=== PATIENT | female | born 1990 | race Caucasian/White ===

== ENCOUNTER 2016-10-04 09:26 | Inpatient (IN) | payer OTHER ==
[2016-10-04] MEDS ORDERED: LACTATED RINGERS 1,000 ML ONE ×2 (10:27→12:19)
[2016-10-04 11:44] LABS: Basophils % (Auto) 0.6 % (0.0-1.8); Eosinophils % (Auto) 7.1 % (0.0-4.3); Hematocrit 30.7 % (30.3-42.9); Hemoglobin 9.4 gm/dl (10.1-14.3); Mean Corpuscular HGB Conc 31 % (30-34); Platelet Count 246 K/mm3 (140-440); Red Blood Count 4.55 M/mm3 (3.65-5.03); Red Cell Distribution Width 18.2 % (13.2-15.2); White Blood Count 9.9 K/mm3 (4.5-11.0)
[2016-10-04 11:50] LABS: Mean Corpuscular Hemoglobin 21 pg (28-32); Mean Corpuscular Volume 68 fl (79-97)
[2016-10-04] MEDS ORDERED: SUBLIMAZE ONE (12:08)
[2016-10-04] MEDS ORDERED: POLYCILLIN/NS 2 GM/100 ML 2 GM/100 ML BAG IV ONE ×2 (12:10→12:48)
[2016-10-04 12:23] LABS: HIV-1 Antigen p24 Non React (Non React); HIVR-1/2 Ab Non React (Non React)
--- NOTE | 2016-10-04 12:25 | History and Physical Report ---
History of Present Illness Date of examination: 10/04/16 Date of admission: 10/04/16 11:44 Chief complaint: Painful contractions History of present illness: 26-year-old 002 at ?39+4 wks [place] 10/07/16 (via oral hx of sono at ?12 wks) presents in active labor, she has had no care this . Claims earlier in her , she presented to a clinic in the vicinity ([facility]) where she had an ultrasound x 2, she had a total of 2 visits then was no show afterwards due to finances. She is a recent transplant from [employer]. She has an oral history of section in [place] in 2005 followed by successful In Triage, patient was ~ 4-5 cm dilated Ultrasound obtained here shows infant at 37 weeks ([place] 10/25/16) with estimated weight of 3021 g Has an anterior placenta Past History Past Medical History: no pertinent history Past Surgical History: section (Follwed by in [place]) Social history: single, full code. denies: smoking, alcohol abuse, prescription drug abuse, IV drug use - Obstetrical History : 4 Medications and Allergies Allergies Allergy/AdvReac Type Severity Reaction Status Date / Time No Known Allergies Allergy Verified 10/04/16 10:07 Review of Systems Constitutional: no fever, no chills Cardiovascular: no chest pain, no orthopnea, no palpitations, no edema, no syncope, no lightheadedness, no shortness of breath, no dyspnea on exertion, no paroxysmal nocturnal dyspnea, no high blood pressure Respiratory: no cough with sputum, no excessive sputum, no shortness of breath, no dyspnea on exertion Gastrointestinal: abdominal pain (Painful contractions), no nausea, no vomiting Genitourinary: contractions, no vaginal bleeding, no vaginal discharge, no leakage of fluid - Vital Signs Vital signs: Vital Signs Pulse Pulse Ox 73 99 10/04/16 09:43 10/04/16 09:43 Temp Pulse Resp BP Pulse Ox 96.8 F L 65 20 108/68 98 10/04/16 10:32 10/04/16 12:12 10/04/16 10:32 10/04/16 10:32 10/04/16 12:12 - Physical Exam Cardiovascular: Regular rate, Normal S1, Normal S2 Lungs: Positive: Clear to auscultation, Normal air movement Abdomen: Positive: normal appearance, soft. Negative: distention, tenderness, guarding, rigidity Genitourinary (Female): Positive: normal external genitalia Vulva: both: normal Uterus: Positive: enlarged. Negative: tender (EFW ~ 3000) Adnexa: both: normal Extremities: Positive: normal - Obstetrical FHR: category 1 Cervical Dilatation: 7 (per RN) Results Result Diagrams: 10/04/16 11:11 Abnormal lab results 10/04/16 Range/Units 11:11 Hgb 9.4 L (10.1-14.3) gm/dl MCV 68 L (79-97) fl MCH 21 L (28-32) pg RDW 18.2 H (13.2-15.2) % Eos % (Auto) 7.1 H (0.0-4.3) % Eos # 0.7 H (0.0-0.4) K/mm3 All other labs normal. Assessment and Plan A: 26-year-old 002 at 39 wks in active labor -Cat 1 tracing Issues -Oral hx of in [place] and wants repeat -Mal[place] only (hx from relative) -Discrepant in gestational age ??IUGR (?39 wks via oral hx of sono but 37 wks today) -No care P: -We have obtained ultrasound and labs -Admit -Epidural prn -Expectant management -Anticipate normal vaginal delivery - Patient Problems (1) 39 weeks gestation of Current Visit: Yes Status: Acute (2) No care in current Current Visit: Yes Status: Acute Qualifiers: Trimester: T (3) IUGR (intrauterine growth restriction) Current Visit: Yes Status: Suspected (4) Active labor Current Visit: Yes Status: Acute (5) Hx successful (vaginal after ), currently Current Visit: Yes Status: Acute
[2016-10-04] MEDS ORDERED: ePHEDrine SULFATE IV PRN ×2 (12:48→15:15)
[2016-10-04] MEDS ORDERED: BRETHINE IVP PRN (12:48)
[2016-10-04] MEDS ORDERED: ZOFRAN IV PRN ×2 (12:48→17:53)
[2016-10-04] MEDS ORDERED: BRETHINE SUB-Q PRN (12:48)
[2016-10-04] MEDS ORDERED: XYLOCAINE 2% INFILTRATI ONE ×2 (12:48→17:39)
[2016-10-04] MEDS ORDERED: MINERAL OIL PO PRN (12:48)
[2016-10-04] MEDS ORDERED: LACTATED RINGERS 1,000 ML IV SCH (13:00)
[2016-10-04] MEDS ORDERED: PITOCin/NS 20 UNIT/1000ML DRIP 20 UNITS/1,000 ML BAG IV SCH ×2 (13:00→19:00)
[2016-10-04] MEDS ORDERED: PITOCin/NS 30 UNIT/500ML 30 UNITS/500 ML BAG IV SCH ×2 (13:00)
[2016-10-04] MEDS ORDERED: ePHEDrine SULFATE ONE (13:50)
--- NOTE | 2016-10-04 13:51 | Ultrasound Report ---
OB ULTRASOUND History: No care. Technique: Transabdominal ultrasound with Doppler interrogation. Gestation: Single Position: Cephalic Amniotic Fluid: Decreased DAMON = 6.4 cm Placenta: Anterior Placental Grade: 2 Heart Rate: 124 BPM NEUROANATOMY VISUALIZED: Limited due to calvarium ANATOMY VISUALIZED: Stomach Kidneys Bladder Diaphragm 4 Chamber Heart Heart 3 Vessel Cord SPINE VISUALIZED: Longitudinal The following are not demonstrated due to maternal body habitus or lie: Umbilical cord insertion, neuro-anatomy. BPD: 9.0 cm = 36 w 4 d HC: 34.1 cm = 39 w 2 d AC: 33.3 cm = 37 w 1 d FL: 6.8 cm = 34 w 5 d HC/AC Ratio: 1.0 Cephalic Index: 78.1 Estimated Weight: 3021 grams Clinical age = 39 w 4 d EDC: 10/07/16 US Gest. Age = 37 w 0 d EDC: 10/25/16
[2016-10-04] MEDS ORDERED: XYLOCAINE MPF 2% ONE (14:59)
[2016-10-04] MEDS ORDERED: NARCAN 2 MG/2 ML IV PRN (15:15)
--- NOTE | 2016-10-04 15:15 | Anesthesia Day of Surgery ---
Anesthesia Day of Surgery - Day of Surgery Patient Examined: Yes Patient H&P Reviewed: Yes Patient is NPO: Yes
--- NOTE | 2016-10-04 15:15 | Anesthesia Consultation ---
Anesthesia Consult and Med Hx Date of service: 10/04/16 - Airway Anesthetic Teeth Evaluation: Good ROM Head & Neck: Adequate Mental/Hyoid Distance: Adequate Mallampati Class: Class II Intubation Access Assessment: Probably Good - Pulmonary Exam CTA: Yes - Cardiac Exam Cardiac Exam: RRR - Pre-Operative Health Status ASA Pre-Surgery Classification: ASA1 Proposed Anesthetic Plan: Epidural - Pulmonary Hx Asthma: No COPD: No Hx Pneumonia: No - Cardiovascular System Hx Hypertension: No - Central Nervous System Hx Seizures: No Hx Psychiatric Problems: No - Endocrine Hx Renal Disease: No Hx End Stage Renal Disease: No Hx Hypothyroidism: No Hx Hyperthyroidism: No - Hematic Hx Anemia: No Hx Sickle Cell Disease: No - Other Systems Hx Alcohol Use: No
[2016-10-04] MEDS ORDERED: fentaNYL-BUPIV 2 MCG/ML-0.125% 200 MCG/100 ML BAG EPIDURAL SCH (16:00)
--- NOTE | 2016-10-04 16:35 | Progress Note ---
Assessment and Plan - Patient Problems (1) 39 weeks gestation of Current Visit: Yes Status: Acute (2) No care in current Current Visit: Yes Status: Acute Qualifiers: Trimester: T (3) IUGR (intrauterine growth restriction) Current Visit: Yes Status: Suspected (4) Active labor Current Visit: Yes Status: Acute (5) Hx successful (vaginal after ), currently Current Visit: Yes Status: Acute Subjective - Subjective Date of service: 10/04/16 Patient reports: new complaints, movement normal, contractions, no loss of fluid, no vaginal bleeding Objective - Vital Signs Vital Signs: Vital Signs - 12hr 10/04/16 10/04/16 10/04/16 09:43 09:44 09:48 Temperature Pulse Rate 73 77 84 Pulse Rate [ From Monitor] Respiratory Rate Blood Pressure 108/68 Blood Pressure [Right Arm] O2 Sat by Pulse 99 100 Oximetry 10/04/16 10/04/16 10/04/16 09:53 09:58 10:03 Temperature Pulse Rate 85 65 76 Pulse Rate [ From Monitor] Respiratory Rate Blood Pressure Blood Pressure [Right Arm] O2 Sat by Pulse 100 100 99 Oximetry 10/04/16 10/04/16 10/04/16 10:08 10:13 10:18 Temperature Pulse Rate 71 67 79 Pulse Rate [ From Monitor] Respiratory Rate Blood Pressure Blood Pressure [Right Arm] O2 Sat by Pulse 100 99 99 Oximetry 10/04/16 10/04/16 10/04/16 10:23 10:28 10:32 Temperature 96.8 F L Pulse Rate 68 81 Pulse Rate [ 101 H From Monitor] Respiratory 20 Rate Blood Pressure Blood Pressure 108/68 [Right Arm] O2 Sat by Pulse 99 99 Oximetry 10/04/16 10/04/16 10/04/16 10:33 10:38 10:43 Temperature Pulse Rate 84 67 69 Pulse Rate [ From Monitor] Respiratory Rate Blood Pressure Blood Pressure [Right Arm] O2 Sat by Pulse 99 99 99 Oximetry 10/04/16 10/04/16 10/04/16 10:48 10:53 11:05 Temperature Pulse Rate 71 69 65 Pulse Rate [ From Monitor] Respiratory Rate Blood Pressure Blood Pressure [Right Arm] O2 Sat by Pulse 99 99 99 Oximetry 10/04/16 10/04/16 10/04/16 11:10 11:15 11:20 Temperature Pulse Rate 73 65 65 Pulse Rate [ From Monitor] Respiratory Rate Blood Pressure Blood Pressure [Right Arm] O2 Sat by Pulse 99 100 100 Oximetry 10/04/16 10/04/16 10/04/16 11:25 11:42 11:47 Temperature Pulse Rate 74 68 66 Pulse Rate [ From Monitor] Respiratory Rate Blood Pressure Blood Pressure [Right Arm] O2 Sat by Pulse 100 100 100 Oximetry 10/04/16 10/04/16 10/04/16 11:52 11:57 12:02 Temperature Pulse Rate 71 65 69 Pulse Rate [ From Monitor] Respiratory Rate Blood Pressure Blood Pressure [Right Arm] O2 Sat by Pulse 100 100 98 Oximetry 10/04/16 10/04/16 10/04/16 12:07 12:12 12:17 Temperature Pulse Rate 66 65 70 Pulse Rate [ From Monitor] Respiratory Rate Blood Pressure Blood Pressure [Right Arm] O2 Sat by Pulse 100 98 100 Oximetry 10/04/16 10/04/16 10/04/16 12:22 12:25 12:27 Temperature Pulse Rate 72 74 49 L Pulse Rate [ From Monitor] Respiratory Rate Blood Pressure Blood Pressure [Right Arm] O2 Sat by Pulse 99 94 95 Oximetry 10/04/16 10/04/16 10/04/16 12:32 12:33 12:37 Temperature Pulse Rate 65 67 66 Pulse Rate [ From Monitor] Respiratory Rate Blood Pressure 101/62 Blood Pressure [Right Arm] O2 Sat by Pulse 98 98 Oximetry 10/04/16 10/04/16 10/04/16 12:40 12:42 12:46 Temperature Pulse Rate 66 66 Pulse Rate [ From Monitor] Respiratory 14 Rate Blood Pressure Blood Pressure [Right Arm] O2 Sat by Pulse 98 90 Oximetry 10/04/16 10/04/16 10/04/16 12:47 12:52 12:57 Temperature Pulse Rate 76 64 65 Pulse Rate [ From Monitor] Respiratory Rate Blood Pressure Blood Pressure [Right Arm] O2 Sat by Pulse 97 97 97 Oximetry 10/04/16 10/04/16 10/04/16 13:02 13:07 13:12 Temperature Pulse Rate 68 63 61 Pulse Rate [ From Monitor] Respiratory Rate Blood Pressure Blood Pressure [Right Arm] O2 Sat by Pulse 98 99 98 Oximetry 10/04/16 10/04/16 10/04/16 13:17 13:22 13:26 Temperature 97.1 F L Pulse Rate 68 66 Pulse Rate [ 67 From Monitor] Respiratory 14 Rate Blood Pressure Blood Pressure 101/62 [Right Arm] O2 Sat by Pulse 98 99 99 Oximetry 10/04/16 10/04/16 10/04/16 13:27 13:32 13:37 Temperature Pulse Rate 65 64 72 Pulse Rate [ From Monitor] Respiratory Rate Blood Pressure Blood Pressure [Right Arm] O2 Sat by Pulse 99 99 98 Oximetry 10/04/16 10/04/16 10/04/16 13:42 13:47 13:52 Temperature Pulse Rate 65 68 65 Pulse Rate [ From Monitor] Respiratory Rate Blood Pressure Blood Pressure [Right Arm] O2 Sat by Pulse 99 100 98 Oximetry 10/04/16 10/04/16 10/04/16 13:57 14:02 14:07 Temperature Pulse Rate 74 67 63 Pulse Rate [ From Monitor] Respiratory Rate Blood Pressure Blood Pressure [Right Arm] O2 Sat by Pulse 98 98 99 Oximetry 10/04/16 10/04/16 10/04/16 14:12 14:17 14:22 Temperature Pulse Rate 65 69 72 Pulse Rate [ From Monitor] Respiratory Rate Blood Pressure Blood Pressure [Right Arm] O2 Sat by Pulse 96 99 99 Oximetry 10/04/16 10/04/16 10/04/16 14:27 14:43 14:46 Temperature Pulse Rate 71 67 77 Pulse Rate [ From Monitor] Respiratory Rate Blood Pressure 125/97 Blood Pressure [Right Arm] O2 Sat by Pulse 97 100 Oximetry 10/04/16 10/04/16 10/04/16 14:48 14:50 14:52 Temperature Pulse Rate 78 80 85 Pulse Rate [ From Monitor] Respiratory Rate Blood Pressure 115/83 117/74 115/68 Blood Pressure [Right Arm] O2 Sat by Pulse 100 Oximetry 10/04/16 10/04/16 10/04/16 14:53 14:54 14:56 Temperature Pulse Rate 86 71 91 H Pulse Rate [ From Monitor] Respiratory Rate Blood Pressure 115/70 112/74 Blood Pressure [Right Arm] O2 Sat by Pulse 99 Oximetry 10/04/16 10/04/16 10/04/16 14:58 15:00 15:02 Temperature Pulse Rate 83 88 93 H Pulse Rate [ From Monitor] Respiratory Rate Blood Pressure 115/73 105/63 106/66 Blood Pressure [Right Arm] O2 Sat by Pulse 99 Oximetry 10/04/16 10/04/16 10/04/16 15:03 15:04 15:06 Temperature Pulse Rate 89 96 H 80 Pulse Rate [ From Monitor] Respiratory Rate Blood Pressure 104/56 103/61 Blood Pressure [Right Arm] O2 Sat by Pulse 99 Oximetry 10/04/16 10/04/16 10/04/16 15:08 15:10 15:12 Temperature Pulse Rate 77 87 114 H Pulse Rate [ From Monitor] Respiratory Rate Blood Pressure 107/56 109/57 105/57 Blood Pressure [Right Arm] O2 Sat by Pulse 99 Oximetry 10/04/16 10/04/16 10/04/16 15:13 15:14 15:16 Temperature Pulse Rate 78 81 84 Pulse Rate [ From Monitor] Respiratory Rate Blood Pressure 105/56 106/58 Blood Pressure [Right Arm] O2 Sat by Pulse 98 Oximetry 10/04/16 10/04/16 10/04/16 15:18 15:20 15:22 Temperature Pulse Rate 111 H 121 H 76 Pulse Rate [ From Monitor] Respiratory Rate Blood Pressure 104/56 99/56 102/59 Blood Pressure [Right Arm] O2 Sat by Pulse 99 Oximetry 10/04/16 10/04/16 10/04/16 15:23 15:24 15:26 Temperature Pulse Rate 58 L 61 93 H Pulse Rate [ From Monitor] Respiratory Rate Blood Pressure 102/59 98/55 Blood Pressure [Right Arm] O2 Sat by Pulse 99 Oximetry 10/04/16 10/04/16 10/04/16 15:28 15:30 15:32 Temperature Pulse Rate 59 L 64 59 L Pulse Rate [ From Monitor] Respiratory Rate Blood Pressure 96/58 108/58 110/61 Blood Pressure [Right Arm] O2 Sat by Pulse 99 Oximetry 10/04/16 10/04/16 10/04/16 15:33 15:34 15:36 Temperature Pulse Rate 70 67 76 Pulse Rate [ From Monitor] Respiratory Rate Blood Pressure 102/59 105/60 Blood Pressure [Right Arm] O2 Sat by Pulse 99 Oximetry 10/04/16 10/04/16 10/04/16 15:38 15:40 15:41 Temperature Pulse Rate 61 122 H 68 Pulse Rate [ From Monitor] Respiratory Rate Blood Pressure 106/61 78/52 103/62 Blood Pressure [Right Arm] O2 Sat by Pulse 100 Oximetry 10/04/16 10/04/16 10/04/16 15:42 15:43 15:44 Temperature Pulse Rate 93 H 85 86 Pulse Rate [ From Monitor] Respiratory Rate Blood Pressure 93/50 95/56 Blood Pressure [Right Arm] O2 Sat by Pulse 99 Oximetry 10/04/16 10/04/16 10/04/16 15:46 15:48 15:50 Temperature Pulse Rate 78 62 60 Pulse Rate [ From Monitor] Respiratory Rate Blood Pressure 90/55 96/56 101/59 Blood Pressure [Right Arm] O2 Sat by Pulse 100 Oximetry 10/04/16 10/04/16 10/04/16 15:52 15:53 15:54 Temperature Pulse Rate 55 L 165 H 61 Pulse Rate [ From Monitor] Respiratory Rate Blood Pressure 106/60 104/60 Blood Pressure [Right Arm] O2 Sat by Pulse 100 Oximetry 10/04/16 10/04/16 10/04/16 15:56 15:58 16:00 Temperature Pulse Rate 74 62 125 H Pulse Rate [ From Monitor] Respiratory Rate Blood Pressure 94/56 91/53 77/48 Blood Pressure [Right Arm] O2 Sat by Pulse 99 Oximetry 10/04/16 10/04/16 10/04/16 16:02 16:03 16:04 Temperature Pulse Rate 67 75 115 H Pulse Rate [ From Monitor] Respiratory Rate Blood Pressure 87/59 81/53 Blood Pressure [Right Arm] O2 Sat by Pulse 99 Oximetry 10/04/16 10/04/16 10/04/16 16:06 16:08 16:10 Temperature Pulse Rate 88 87 60 Pulse Rate [ From Monitor] Respiratory Rate Blood Pressure 90/56 104/58 99/58 Blood Pressure [Right Arm] O2 Sat by Pulse 99 Oximetry 10/04/16 10/04/16 10/04/16 16:12 16:13 16:14 Temperature Pulse Rate 57 L 93 H 76 Pulse Rate [ From Monitor] Respiratory Rate Blood Pressure 100/60 94/54 Blood Pressure [Right Arm] O2 Sat by Pulse 99 Oximetry 10/04/16 10/04/16 10/04/16 16:16 16:18 16:20 Temperature Pulse Rate 95 H 69 83 Pulse Rate [ From Monitor] Respiratory Rate Blood Pressure 89/55 86/52 97/55 Blood Pressure [Right Arm] O2 Sat by Pulse 92 100 Oximetry 10/04/16 10/04/16 10/04/16 16:22 16:23 16:24 Temperature Pulse Rate 68 56 L 55 L Pulse Rate [ From Monitor] Respiratory Rate Blood Pressure 97/54 110/58 Blood Pressure [Right Arm] O2 Sat by Pulse 100 Oximetry 10/04/16 10/04/16 10/04/16 16:26 16:28 16:30 Temperature Pulse Rate 61 62 59 L Pulse Rate [ From Monitor] Respiratory Rate Blood Pressure 111/59 109/56 113/56 Blood Pressure [Right Arm] O2 Sat by Pulse 100 Oximetry - Exam FHR: category 1 Cervical Dilatation: 8.5 - Labs Labs: Abnormal Labs 10/04/16 11:11 Hgb 9.4 L MCV 68 L MCH 21 L RDW 18.2 H Eos % (Auto) 7.1 H Eos # 0.7 H Laboratory Results - last 24 hr 10/04/16 10/04/16 10/04/16 11:11 11:11 11:11 WBC 9.9 RBC 4.55 Hgb 9.4 L Hct 30.7 MCV 68 L MCH 21 L MCHC 31 RDW 18.2 H Plt Count 246 Lymph % (Auto) 18.4 Gaines % (Auto) 6.9 Eos % (Auto) 7.1 H Baso % (Auto) 0.6 Lymph # 1.8 Gaines # 0.7 Eos # 0.7 H Baso # 0.1 Seg Neutrophils % 67.0 Seg Neutrophils # 6.7 Hep Bs Antigen Non-reactive HIV 1&2 Antibody Rapid HIV P24 Antigen Rubella IgG Antibody Immune Blood Type Antibody Screen LEX Antibody Screen 10/04/16 10/04/16 11:11 11:11 WBC RBC Hgb Hct MCV MCH MCHC RDW Plt Count Lymph % (Auto) Gaines % (Auto) Eos % (Auto) Baso % (Auto) Lymph # Gaines # Eos # Baso # Seg Neutrophils % Seg Neutrophils # Hep Bs Antigen HIV 1&2 Antibody Rapid Non react HIV P24 Antigen Non react Rubella IgG Antibody Blood Type A POSITIVE Antibody Screen TNR LEX Antibody Screen Negative
[2016-10-04] MEDS ORDERED: POLYCILLIN/NS 1 GM/50 ML 1 GM/50 ML BAG IV SCH (16:49)
--- NOTE | 2016-10-04 17:52 | Procedure Note ---
OB Delivery Note - Delivery Date of Delivery: 10/04/16 Surgeon: FCO LOPEZ Estimated blood loss: 200cc - Vaginal Delivery presentation: vertex Delivery position: OA Intrapartum events: no care, meconium Delivery induction: none Delivery monitor: external FHT, external uterine Route of delivery: Delivery placenta: spontaneous Delivery cord: 3 umbilical vessels Episiotomy: none Delivery laceration: 2nd degree Delivery repair: vicryl Anesthesia: local, epidural - Infant A at 1 minute: 8 at 5 minutes: 9 Gender: Male (Del @ 17:26, weight is 7#2 or 3226 g)
[2016-10-04] MEDS ORDERED: TYLENOL PO PRN (17:53)
[2016-10-04] MEDS ORDERED: PHENERGAN PR PRN (17:53)
[2016-10-04] MEDS ORDERED: DERMOPLAST TP PRN (17:53)
[2016-10-04] MEDS ORDERED: BENADRYL PO PRN (17:53)
[2016-10-04] MEDS ORDERED: MILK OF MAGNESIA PO PRN (17:53)
[2016-10-04] MEDS ORDERED: LANSINOH TP PRN (17:53)
[2016-10-04] MEDS ORDERED: NORCO 5/325 PO PRN (17:53)
[2016-10-04] MEDS ORDERED: PHENERGAN PO PRN (17:53)
[2016-10-04] MEDS ORDERED: TUCKS PAD TP PRN (17:53)
[2016-10-04] MEDS ORDERED: DULCOLAX PR PRN (17:53)
[2016-10-04] MEDS ORDERED: SODIUM CHLORIDE FLUSH SYRINGE 10 ML IV SCH (18:00)
[2016-10-04] MEDS: SENOKOT S PO SCH (21:55)
[2016-10-04] MEDS: FEOSOL PO SCH (21:55)
[2016-10-04] MEDS: COLACE PO SCH (21:55)
[2016-10-04] MEDS: MOTRIN PO SCH (23:26)
[2016-10-05 05:02] LABS: Hematocrit 29.3 % (30.3-42.9)
[2016-10-05] MEDS: MOTRIN PO SCH ×3 (06:14→17:48)
[2016-10-05] MEDS: PRENATAL VITAMIN PO SCH (09:45)
[2016-10-05] MEDS: SENOKOT S PO SCH ×2 (09:45→21:56)
[2016-10-05] MEDS: FEOSOL PO SCH ×2 (09:45→21:56)
[2016-10-05] MEDS: COLACE PO SCH ×2 (09:45→21:56)
--- NOTE | 2016-10-05 10:00 | Progress Note ---
Assessment and Plan PPD#1 s/p succesful # 2 -Doing well Issues -Oral hx of in [place] and wants repeat -H[place]ian only (hx from relative) -Discrepant in gestational age ??IUGR (?39 wks via oral hx of sono but 37 wks today) -No care P: -Routine care -Anticipate discharge in 24-48 hours - Patient Problems (1) , delivered Current Visit: Yes Status: Acute (2) 39 weeks gestation of Current Visit: Yes Status: Acute (3) No care in current Current Visit: Yes Status: Acute Qualifiers: Trimester: T (4) IUGR (intrauterine growth restriction) Current Visit: Yes Status: Suspected (5) Active labor Current Visit: Yes Status: Acute (6) Hx successful (vaginal after ), currently Current Visit: Yes Status: Acute Subjective - Subjective Date of service: 10/05/16 Principal diagnosis: PPD# 1 Interval history: Patient seen and examined, stable doing well. Patient reports: appetite normal, voiding normally, pain well controlled, flatus , ambulating normally, no dizzy ambulation, no nauseated [place]: doing well Objective - Vital Signs Latest vital signs: Vital Signs Temp Pulse Pulse Resp BP BP Pulse Ox 10/05/16 09:00 98.6 F 55 L 18 100/66 10/05/16 04:30 98.6 F 67 16 110/72 10/05/16 00:00 98.6 F 69 16 129/67 10/04/16 20:00 98.6 F 67 16 132/66 10/04/16 19:22 76 96 10/04/16 19:21 70 92 10/04/16 19:17 71 96 10/04/16 19:13 65 118/67 10/04/16 19:12 70 96 10/04/16 19:07 68 96 10/04/16 19:02 69 97 10/04/16 18:59 66 123/69 10/04/16 18:57 69 96 10/04/16 18:52 66 97 10/04/16 18:47 67 98 10/04/16 18:44 71 113/67 10/04/16 18:42 69 96 10/04/16 18:37 69 98 10/04/16 18:32 68 99 10/04/16 18:28 71 118/67 0517 18:27 69 98 0517 18:22 63 98 0517 18:17 71 98 0517 18:14 74 117/61 0517 18:12 69 99 0517 18:07 76 98 0517 18:02 70 98 0517 17:58 75 114/65 90 0517 17:57 98 0517 17:52 67 100 0517 17:47 74 100 0517 17:44 71 111/59 05 17:42 80 99 0517 17:41 75 117/61 0517 17:16 86 95 0517 17:14 80 122/58 0517 17:13 81 123/61 0517 17:10 75 114/55 0517 17:09 79 82 L 10/04/16 17:08 78 113/65 95 10/04/16 17:06 71 117/57 0517 17:05 76 107/57 0517 17:03 70 159/68 100 0517 17:00 69 111/59 0517 16:58 86 107/55 100 0517 16:56 65 107/56 0517 16:54 69 114/59 0517 16:53 64 100 0517 16:52 69 109/62 0517 16:50 71 131/73 0517 16:48 69 116/71 100 0517 16:46 69 108/63 0517 16:44 64 115/64 0517 16:43 68 100 05/17 16:42 67 112/62 0517 16:40 81 116/62 0517 16:38 67 109/58 100 0517 16:36 60 106/56 05/17 16:34 85 100/57 0517 16:33 96 H 100 05/17 16:32 103 H 92/55 0517 16:30 59 L 113/56 0517 16:28 62 109/56 100 05/17 16:26 61 111/59 10/04/16 16:24 55 L 110/58 10/04/16 16:23 56 L 100 10/04/16 16:22 68 97/54 10/04/16 16:20 83 97/55 10/04/16 16:18 69 86/52 100 10/04/16 16:16 95 H 89/55 92 10/04/16 16:14 76 94/54 10/04/16 16:13 93 H 99 10/04/16 16:12 57 L 100/60 10/04/16 16:10 60 99/58 10/04/16 16:08 87 104/58 99 10/04/16 16:06 88 90/56 10/04/16 16:04 115 H 81/53 10/04/16 16:03 75 99 10/04/16 16:02 67 87/59 10/04/16 16:00 125 H 77/48 10/04/16 15:58 62 91/53 99 10/04/16 15:56 74 94/56 10/04/16 15:54 61 104/60 10/04/16 15:53 165 H 100 10/04/16 15:52 55 L 106/60 10/04/16 15:50 60 101/59 10/04/16 15:48 62 96/56 100 10/04/16 15:46 78 90/55 10/04/16 15:44 86 95/56 10/04/16 15:43 85 99 10/04/16 15:42 93 H 93/50 10/04/16 15:41 68 103/62 10/04/16 15:40 122 H 78/52 10/04/16 15:38 61 106/61 100 10/04/16 15:36 76 105/60 10/04/16 15:34 67 102/59 10/04/16 15:33 70 99 10/04/16 15:32 59 L 110/61 10/04/16 15:30 64 108/58 10/04/16 15:28 59 L 96/58 99 10/04/16 15:26 93 H 98/55 10/04/16 15:24 61 102/59 10/04/16 15:23 58 L 99 10/04/16 15:22 76 102/59 05//17 15:20 121 H 99/56 10/04/16 15:18 111 H 104/56 99 10/04/16 15:16 84 106/58 10/04/16 15:14 81 105/56 10/04/16 15:13 78 98 10/04/16 15:12 114 H 105/57 10/04/16 15:10 87 109/57 10/04/16 15:08 77 107/56 99 10/04/16 15:06 80 103/61 10/04/16 15:04 96 H 104/56 10/04/16 15:03 89 99 10/04/16 15:02 93 H 106/66 10/04/16 15:00 88 105/63 10/04/16 14:58 83 115/73 99 10/04/16 14:56 91 H 112/74 10/04/16 14:54 71 115/70 10/04/16 14:53 86 99 10/04/16 14:52 85 115/68 10/04/16 14:50 80 117/74 10/04/16 14:48 78 115/83 100 10/04/16 14:46 77 125/97 10/04/16 14:43 67 100 10/04/16 14:27 71 97 10/04/16 14:22 72 99 10/04/16 14:17 69 99 10/04/16 14:12 65 96 10/04/16 14:07 63 99 10/04/16 14:02 67 98 10/04/16 13:57 74 98 10/04/16 13:52 65 98 10/04/16 13:47 68 100 10/04/16 13:42 65 99 10/04/16 13:37 72 98 10/04/16 13:32 64 99 10/04/16 13:27 65 99 10/04/16 13:26 97.1 F L 67 14 101/62 99 10/04/16 13:22 66 99 10/04/16 13:17 68 98 10/04/16 13:12 61 98 10/04/16 13:07 63 99 10/04/16 13:02 68 98 10/04/16 12:57 65 97 10/04/16 12:52 64 97 10/04/16 12:47 76 97 10/04/16 12:46 66 90 10/04/16 12:42 66 98 10/04/16 12:40 14 10/04/16 12:37 66 98 10/04/16 12:33 67 101/62 10/04/16 12:32 65 98 10/04/16 12:27 49 L 95 10/04/16 12:25 74 94 10/04/16 12:22 72 99 10/04/16 12:17 70 100 10/04/16 12:12 65 98 10/04/16 12:07 66 100 10/04/16 12:02 69 98 10/04/16 11:57 65 100 10/04/16 11:52 71 100 10/04/16 11:47 66 100 10/04/16 11:42 68 100 10/04/16 11:25 74 100 10/04/16 11:20 65 100 10/04/16 11:15 65 100 10/04/16 11:10 73 99 10/04/16 11:05 65 99 10/04/16 10:53 69 99 10/04/16 10:48 71 99 10/04/16 10:43 69 99 10/04/16 10:38 67 99 10/04/16 10:33 84 99 10/04/16 10:32 96.8 F L 101 H 20 108/68 10/04/16 10:28 81 99 10/04/16 10:23 68 99 10/04/16 10:18 79 99 10/04/16 10:13 67 99 10/04/16 10:08 71 100 10/04/16 10:03 76 99 10/04/16 09:58 65 100 Intake and Output 10/04/16 10/05/16 10/05/16 22:59 06:59 14:59 Intake Total 3200 800 120 Output Total 1450 Balance 1750 800 120 Intake: IV 2500 Lactated Ringers 1,000 ml 1000 @ 125 mls/hr IV DIRECT [facility] Rx#:[id number] Lactated Ringers 1,000 ml 1000 As .ROUTE .STK-MED ONE Rx#:[id number] PITOCin/NS 20 UNIT/1000ML 300 DRIP 20 units In 1,000 ml @ 250 mls/hr IV DIRECT [facility] Rx#:[id number] POLYCILLIN/NS 2 GM/100 ML 200 2 gm In 100 ml @ 100 mls /hr IV ONCE ONE Rx#: [id number] Oral 300 120 Intake, Free Water 400 800 Output: Urine 1450 Void 1450 Other: Total, Intake Amount 300 120 Total, Output Amount 650 # Voids Void 1 Estimated Blood Loss 200 - Exam Abdomen: Present: normal appearance, soft. Absent: distention, tenderness, guarding, rigidity Uterus: Present: fundal height below umbilicus. Absent: tenderness Extremities: Present: normal - Labs Labs: Abnormal lab results 10/04/16 10/05/16 Range/Units 11:11 04:08 Hgb 9.4 L 9.0 L (10.1-14.3) gm/dl Hct 29.3 L (30.3-42.9) % MCV 68 L (79-97) fl MCH 21 L (28-32) pg RDW 18.2 H (13.2-15.2) % Eos % (Auto) 7.1 H (0.0-4.3) % Eos # 0.7 H (0.0-0.4) K/mm3
--- NOTE | 2016-10-05 10:04 | Discharge Summary ---
Providers - Providers Date of Admission: 10/04/16 11:44 Date of discharge: 10/06/16 Attending physician: FCO LOPEZ 10/04/16 Consult to Case Management [CONS] Routine Services Needed at Discharge: Social Service Liaison Notified:: no Comment:: no care Primary care physician: [employer] Hospitalization Reason for admission: active labor, IUP at term Delivery: (# 2) Laceration: 2nd degree Other procedures: none complications: none Discharge diagnosis: IUP at term delivered, (# 2) baby: male Hospital course: Uncomplicated hospital course Condition at discharge: Good Disposition: DISCHARGED TO HOME OR SELFCARE - Discharge Diagnoses (1) , delivered Status: Acute (2) 39 weeks gestation of Status: Acute (3) No care in current Status: Acute Qualifiers: Trimester: T (4) IUGR (intrauterine growth restriction) Status: Suspected (5) Active labor Status: Acute (6) Hx successful (vaginal after ), currently Status: Acute Plan - Discharge Medications Prescriptions: HYDROcodone/APAP 5-325 [[place] 5/325] 1 each PO Q6HR PRN #30 tablet PRN Reason: Pain Ibuprofen [Motrin 600 MG tab] 600 mg PO Q8H PRN #30 tablet PRN Reason: Pain Multivitamin with Iron [Multivitamins with Iron] 1 each PO DAILY #30 tablet - Provider Discharge Summary Activity: no sex for 6 weeks, no heavy lifting 4 weeks, no strenuous exercise Additional instructions: [] Smoking cessation referral if applicable(refer to patient education folder for contact #) [] Refer to [facility]'s [facility] Booklet Call your doctor immediately for: * Fever > 100.5 * Heavy vaginal bleeding ( >1 pad per hour) * Severe persistent headache * Shortness of breath * Reddened, hot, painful area to leg or breast * Drainage or odor from incision. * Keep incision clean and dry at all times and follow doctor's instructions regarding bathing/showering - Follow up plan Follow up: PRIMARY CARE, [Primary Care Provider] - 6 Weeks
--- NOTE | 2016-10-05 16:44 | Progress Note ---
Subjective Date of service: 10/05/16 Principal diagnosis: PPD# 1 Interval history: 1st day after normal vaginal delivery Patient is in the bed, comfortable. Pain is well controlled with pain meds. Ambulated well. No residual neurological deficit. No anesthesia complications Objective - Constitutional Vitals: Vital Signs - 12hr 10/05/16 10/05/16 09:00 11:33 Temperature 98.6 F 97.6 F Pulse Rate [ 55 L 60 From Monitor] Respiratory 18 18 Rate Blood Pressure 100/66 93/59 [Right Arm] - Labs CBC & Chem 7: 10/05/16 04:08 Labs: Abnormal lab results 10/05/16 Range/Units 04:08 Hgb 9.0 L (10.1-14.3) gm/dl Hct 29.3 L (30.3-42.9) %
[2016-10-06] MEDS: MOTRIN PO SCH ×3 (00:30→12:26)
[2016-10-06] MEDS: FEOSOL PO SCH (10:30)
[2016-10-06] MEDS: PRENATAL VITAMIN PO SCH (10:30)
[2016-10-06] MEDS: SENOKOT S PO SCH ×2 (10:31→10:32)
[2016-10-06] MEDS: COLACE PO SCH (10:31)
[2016-10-06 17:00] VITALS: BP 98/63
== END 2016-10-06 17:10 | disposition home or self-care (01) | DRG 775 ==
LOC: TRG 09:26 → LD 11:44 → OB 19:34
PROVIDERS: ADMIT Obstetrics & Gynecology Gynecology; ATTEND Obstetrics & Gynecology Gynecology
PROC: 10E0XZZ Delivery of Products of Conception, External Approach (ICD-10-PCS; principal; 2016-10-04)
PROC: 0KQM0ZZ Repair Perineum Muscle, Open Approach (ICD-10-PCS; 2016-10-04)
PROC: 3E0S3BZ Introduction of Anesthetic Agent into Epidural Space, Percutaneous Approach (ICD-10-PCS; 2016-10-04)
PROC: 00HU33Z Insertion of Infusion Device into Spinal Canal, Percutaneous Approach (ICD-10-PCS; 2016-10-04)
DX: O34.211 Maternal care for low transverse scar from previous cesarean delivery (principal); O36.5930 Maternal care for other known or suspected poor fetal growth, third trimester, not applicable or unspecified; O70.1 Second degree perineal laceration during delivery; O09.33 Supervision of pregnancy with insufficient antenatal care, third trimester; Z3A.39 39 weeks gestation of pregnancy; Z37.0 Single live birth; O77.0 Labor and delivery complicated by meconium in amniotic fluid
CPT/HCPCS: 36415; 76805; 85014; 85018; 85025; 86592; 86706; 86762; 86850; 86900; 86901; 87806; 99211; G0463; J0290; J2590; J3010; J7120